=== PATIENT | male | born 1975 ===

== ENCOUNTER 2024-03-02 05:08 | Day surgery (SDC) | payer OTHER ==
[~2024-03-02 05:08] MED LIST: AZOR 10-20 MG1 EACH PO; HYDRALAZINE HCL25 MG PO; VALSARTAN-HCTZ1 EAC3 PO
[2024-03-02] MEDS ORDERED: CEFAZOLIN SODIUM 1,000 MG VIAL IV ONE (11:15)
[2024-03-02] MEDS ORDERED: SUGAMMADEX SODIUM 200 MG/2 ML VIAL IV ONE (11:15)
[2024-03-02] MEDS ORDERED: MORPHINE SULFATE 4 MG/ML VIAL IV ONE ×2 (11:45→12:15)
== END 2024-03-02 13:15 | disposition home or self-care (01) ==
LOC: CIR.AMB 05:08
PROVIDERS: ATTEND Surgery
DX: K42.9 Umbilical hernia without obstruction or gangrene (principal)
CPT/HCPCS: 49593; C1781